=== PATIENT | male | born 1945 | race Caucasian/White ===

== ENCOUNTER 2017-10-14 22:48 | Inpatient (IN) ==
[2017-10-14] MEDS ORDERED: Vancomycin 1,750 MG in D5% in Water 500 ML IVPB ONE (23:00)
[2017-10-14] MEDS ORDERED: *HR* FentaNYL (PF) 100 MCG/2 ML VIAL ONE (23:05)
[2017-10-14] MEDS ORDERED: Naloxone 0.4 MG/ML INJ IVP PRN (23:06)
[2017-10-14] MEDS ORDERED: 0.9 % Sodium Chloride 1,000 ML IVC SCH (23:15)
[2017-10-14] MEDS ORDERED: *HR* Dextrose 50 % in Water (Syg) 50 ML SYRINGE IVP PRN (23:19)
[2017-10-14] MEDS ORDERED: Dextrose Gel 15 GM/37.5 ML TUBE PO PRN ×2 (23:19)
[2017-10-14] MEDS ORDERED: D5% in Water 1,000 ML IVC PRN (23:19)
[2017-10-14] MEDS ORDERED: *HR* FentaNYL (PF) 100 MCG/2 ML VIAL IVP ONE (23:21)
[2017-10-14 23:27] LABS: ABG Base Excess 6 mEq/L (-2 to 3); ABG HCO3 32 mEq/L (21-27); ABG Oxygen Saturation 97 % (95-98); ABG PCO2 53 mmHg (35-45); ABG PH 7.39 pH Units (7.32-7.45); ABG PO2 98 mmHg (85-104); ABG TCO2 34 mEq/L (20-26); Blood Gas Modality VC; Blood Gas PEEP 5 cm H2O; Blood Gas Respiration Rate 18; Blood Gas VT 500 cc
[2017-10-14] MEDS ORDERED: Insulin LISPRO 300 UNITS/3 ML VIAL SQ SCH (23:30)
--- NOTE | 2017-10-14 23:31 | Internal Med History&Physical ---
Date of Encounter: 10/14/17 Time of Encounter: 11:05 Assessment and Plan (1) Acute respiratory failure with hypoxia and hypercapnia Current visit: Yes Status: Acute Secondary to underlying Pneumonia and acute COPD exacerbation will admit to ICU continue vent support wean off sedation as tolerated IV steroids, broad spectrum IV abx, bronchodilator support wean off vent support as tolerated will f/u ABG, CXR, blood cultures, stat labs Spent 30 minutes of critical time in medical decision making in maintaining vital organ function (2) Acute exacerbation of chronic obstructive pulmonary disease (COPD) Current visit: Yes Status: Acute as listed above (3) Pneumonia Current visit: Yes Status: Acute as listed above Qualifiers: Pneumonia type: due to unspecified organism Laterality: unspecified laterality Lung location: unspecified part of lung Qualified Code(s): J18.9 - Pneumonia, unspecified organism (4) Hypertension Current visit: Yes Status: Chronic Noted to be hypertensive will start Hydralazine 10mg IV q6h prn SBP>160 will closely monitor BP Qualifiers: Hypertension type: essential hypertension Qualified Code(s): I10 - Essential (primary) hypertension (5) Hyperglycemia due to type 2 diabetes mellitus Current visit: Yes Status: Chronic Noted to have fingerstick glucose>500 upon arrival awaiting stat labs started IV fluids high dose insulin sliding scale home dose of levemir accuchecks q4h will f/u labs and treat hyperglycemia accordingly Qualifiers: Diabetes mellitus residential insulin use: with termite exterminator use Qualified Code( s): E11.65 - Type 2 diabetes mellitus with hyperglycemia; Z79.4 - rodent exterminator ( current) use of insulin; Z79.4 - nursing home (current) use of insulin; Z79.4 - rodent exterminator (current) use of insulin; Z79.4 - rodent exterminator (current) use of insulin (6) DVT prophylaxis Current visit: Yes Status: Acute Heparin SQ Internal Medicine - H&P: HPI Chief complaint: Transferred from [facility] for acute respiratory failure s/p intubation Admitted From: Intrahospital Transfer Plans for Post Hospital Care: Transfer [facility] History of present illness: Mr. Estrada is a 71 year old male with PMH Of COPD on LTOT, HTN, DM, HLD, carotid stenosis-s/p CEA, CVA with no residual deficits, PVD who was transferred from [facility] for management of acute respiratory failure s/p intubation. Patient was seen in the [facility] ER for acute respiratory distress with hypercapnia and hypoxia earlier this morning, and was admitted for treatment of PNA and COPD exacerbation. Pt further deteriorated, desaturating to 50% on bipap support, requiring intubation. Pt was then transferred to the [facility] for further management. All history is obtained from the physician at [facility] and medical records. Patient was seen and examined in the ICU. Pt mechanically intubated and sedated. Pt required high doses of sedation prior to transfer due to agitation. Pt was given broad spectrum IV abx prior to transfer (Vancomycin, Zosyn) Noted to have fingerstick BG>500 upon arrival Stat labs, ABG pending Repeat CXR, KUB after OG tube placement Internal Medicine - H&P: Meds 3 Allergy/AdvReac Type Severity Reaction Status Date / Time morphine Allergy unknown Verified 10/14/17 23:21 sulfamethoxazole Allergy unknown Verified 10/14/17 23:21 [From Bactrim] trimethoprim [From Bactrim] Allergy unknown Verified 10/14/17 23:21 All Systems PM: A 10-system review of systems was performed and is negative for pertinent findings except as documented above in the HPI. - Constitutional Constitutional: as per HPI - Constitutional Vitals: Resp BP Pulse Ox 18 192/69 99 10/14/17 22:46 10/14/17 22:46 10/14/17 22:46 General appearance: Present: A&O X 0 (sedated and mechanically ventilated ), obese - Head Head exam: Present: atraumatic, normocephalic - Eye Eye exam: Present: conjuntiva pink, sclera anicteric - Respiratory Respiratory exam: Present: decreased breath sounds. Absent: accessory muscle use, respiratory distress, wheezes - Cardiovascular Cardiovascular exam: Present: RRR, +S1, +S2 - GI/Abdominal GI/Abdominal exam: Present: normal bowel sounds, soft, no peritoneal signs. Absent: distended, tenderness - Extremities Exam Extremities exam: Present: warm, radial pulses palpable and symmetrical. Absent : calf tenderness, pedal edema
[2017-10-14] MEDS: FentaNYL (PF) 1,000 MCG in 0.9 % Sodium Chloride 80 ML IVC SCH (23:32)
[2017-10-14 23:42] LABS: Basophils % 0.2 %; Eosinophils % 0.7 %; Hematocrit 34.7 % (37.5-50.1); Hemoglobin 11.7 g/dL (12.9-16.9); Immature Granulocytes % 0.7 % (0-4); Lymphocytes # 0.3 K/mcL (0.6-4.6); Lymphocytes % 4.7 %; Mean Corpuscular HGB Conc 33.7 g/dL (31.6-35.5); Mean Corpuscular Hemoglobin 30.2 pg (28.0-33.3); Mean Corpuscular Volume 89.4 fL (83.0-100.0); Mean Platelet Volume 10.2 fL (9.4-12.4); Monocytes % 0.7 %; Platelet Count 148 K/mcL (140-400); Red Blood Count 3.88 M/mcL (4.19-5.50); Red Cell Distribution Width 14.3 % (11.5-14.5)
[2017-10-14] MEDS ORDERED: Insulin DETEMIR 100 UNIT/ML X5UNITS SQ SCH (23:45)
[2017-10-14] MEDS: Ipratropium/Albuterol Neb 3 ML IH SCH (23:46)
[2017-10-15 00:07] LABS: Calcium 10.1 mg/dL (8.6-10.3); Magnesium 1.5 mg/dL (1.6-2.6); Phosphorous 3.5 mg/dL (2.7-4.5); Potassium 5.5 mEq/L (3.5-5.1)
[2017-10-15 00:10] LABS: Beta-Hydroxybutyric Acid 0.46 mmol/L (0.02-0.27)
[2017-10-15] MEDS: MethylPREDNISolone 40 MG/ML VIAL IVP SCH ×4 (00:51→23:56)
[2017-10-15] MEDS ORDERED: 0.9 % Sodium Chloride 1,000 ML IVC SCH (00:56)
[2017-10-15] MEDS ORDERED: Vancomycin 750 MG in D5% in Water 250 ML IVPB ONE (01:00)
[2017-10-15 01:05] LABS: Hemoglobin A1C 9.7 %
[2017-10-15] MEDS ORDERED: Insulin Human Regular 100 UNIT in 0.9 % Sodium Chloride 100 ML IVC SCH (01:15)
[2017-10-15] MEDS: Insulin Human Regular 100 UNIT in 0.9 % Sodium Chloride 100 ML IVC SCH ×2 (01:36→05:49)
[2017-10-15] MEDS: Ipratropium/Albuterol Neb 3 ML IH SCH ×6 (03:38→23:49)
[2017-10-15] MEDS: Piperacillin/Tazobactam 3.375 GM/200 ML BAG IVPB SCH ×3 (04:15→20:01)
[2017-10-15 04:18] LABS: Basophils % 0.1 %; Eosinophils % 0.1 %; Hematocrit 32.4 % (37.5-50.1); Hemoglobin 10.9 g/dL (12.9-16.9); Immature Granulocytes % 0.3 % (0-4); Lymphocytes # 0.4 K/mcL (0.6-4.6); Lymphocytes % 4.9 %; Mean Corpuscular HGB Conc 33.6 g/dL (31.6-35.5); Mean Corpuscular Hemoglobin 29.8 pg (28.0-33.3); Mean Corpuscular Volume 88.5 fL (83.0-100.0); Mean Platelet Volume 10.5 fL (9.4-12.4); Monocytes # 0.1 K/mcL (0.0-1.3); Neutrophils # 6.7 K/mcL (1.6-8.9); Platelet Count 160 K/mcL (140-400); Red Blood Count 3.66 M/mcL (4.19-5.50); Red Cell Distribution Width 14.1 % (11.5-14.5); Segmented Neutrophils % 93.6 %
[2017-10-15 04:33] LABS: Calcium 10.2 mg/dL (8.6-10.3); Magnesium 1.4 mg/dL (1.6-2.6); Phosphorous 2.1 mg/dL (2.7-4.5); Potassium 4.1 mEq/L (3.5-5.1)
[2017-10-15] MEDS ORDERED: Magnesium Sulfate 2 GM in D5% in Water 100 ML IVPB ONE (05:30)
[2017-10-15] MEDS: Pantoprazole 40 MG VIAL IVPB SCH (05:44)
[2017-10-15] MEDS: *HR* Heparin 5,000 UNIT/ML VIAL SQ SCH ×3 (05:44→20:03)
[2017-10-15] MEDS ORDERED: Vancomycin 1,000 MG in D5% in Water 250 ML IVPB SCH (06:00)
[2017-10-15] MEDS ORDERED: 0.9 % Sodium Chloride 1,000 ML IVC ONE ×2 (07:06→07:21)
[2017-10-15] MEDS ORDERED: Lacri-Lube 3.5 GM TUBE BOTH EYES PRN (07:09)
[2017-10-15] MEDS ORDERED: Aminoglycoside Consult 1 EACH MC ONE (08:02)
[2017-10-15] MEDS: Chlorhexidine Rinse 15 ML MOUTHWASH MM SCH ×2 (08:09→20:00)
[2017-10-15] MEDS: Lacri-Lube 3.5 GM TUBE BOTH EYES SCH ×4 (08:36→20:00)
[2017-10-15] MEDS ORDERED: Oseltamivir 6 MG/ML UDC PO SCH (09:00)
[2017-10-15 09:26] LABS: Prothrombin Time 11.2 Seconds (9.4-12.1)
[2017-10-15] MEDS ORDERED: Dextrose Gel 15 GM/37.5 ML TUBE PO PRN ×4 (09:34→11:55)
[2017-10-15] MEDS ORDERED: D5% in Water 1,000 ML IVC PRN ×2 (09:34→11:55)
[2017-10-15] MEDS ORDERED: *HR* Dextrose 50 % in Water (Syg) 50 ML SYRINGE IVP PRN ×2 (09:34→11:55)
--- NOTE | 2017-10-15 09:36 | Pulmonology Consult Note ---
<Sukumar Iyer - Last Filed: 10/15/17 11:16> Date of Encounter: 10/15/17 Time of Encounter: 09:28 Assessment and Plan (1) Acute respiratory failure with hypoxia and hypercapnia Current Visit: Yes Status: Acute 71-year-old male with known history of COPD was transferred from the [place] undergoing treatment for pneumonia and worsening respiratory status. He required intubation sedation upon admission and transfer to the ICU. - Currently stable intubated, bibasilar infiltrates concerning for pneumonia superimposed COPD exacerbation. Plan: continue vent support wean off sedation as tolerated IV steroids, broad spectrum IV abx, bronchodilator support wean off vent support as tolerated - Continue Levaquin, vancomycin and Zosyn. (2) Acute exacerbation of chronic obstructive pulmonary disease (COPD) Current Visit: Yes Status: Acute Patient presented with hypoxia, hypercarbia, altered mental status requiring intubation. - Continue plan as above. (3) Pneumonia Current Visit: Yes Status: Acute Bibasilar infiltrates concerning for pneumonia given current clinical status we will continue broad-spectrum antibiotics as discussed above. Qualifiers: Pneumonia type: due to unspecified organism Laterality: unspecified laterality Lung location: unspecified part of lung Qualified Code(s): J18.9 - Pneumonia, unspecified organism (4) Hypertension Current Visit: Yes Status: Chronic Patient has no history of hypertension with multiple medications. Blood pressure elevated Plan: Clonidine 0.11 dose - Hydralazine every 6 hours when necessary for systolic blood pressure greater than 160. Qualifiers: Hypertension type: essential hypertension Qualified Code(s): I10 - Essential (primary) hypertension (5) Hyperglycemia due to type 2 diabetes mellitus Current Visit: Yes Status: Chronic Patient presented with hyperglycemia with a glucose of 589, current glucose 190. Anion gap 10 - Likely secondary to pneumonia - Likely elevated in the setting of acute illness, pneumonia. Does have a baseline elevated hemoglobin A1c at 9.7, likely not well controlled. Plan: - Hold home medications as patient is intubated and nothing by mouth - Discontinue insulin drip - Every 6 hours glucose checks - High-dose sliding scale insulin - Levemir 20 units at bedtime Qualifiers: Diabetes mellitus fpc insulin use: with ferry terminal supervisor use Qualified Code( s): E11.65 - Type 2 diabetes mellitus with hyperglycemia; Z79.4 - termite treater helper ( current) use of insulin; Z79.4 - jail (current) use of insulin; Z79.4 - jail (current) use of insulin; Z79.4 - jail (current) use of insulin (6) DVT prophylaxis Current Visit: Yes Status: Acute Subcutaneous heparin History of Present Illness Consult date: 10/15/17 Requesting physician: Tracy Soto Reason for consult: dyspnea, COPD, hypoxemia History of present illness: Mr. Estrada is a 71 year old male with PMH Of COPD on LTOT, HTN, DM, HLD, carotid stenosis-s/p CEA, CVA with no residual deficits, PVD who was transferred from [facility] for management of acute respiratory failure s/p intubation. Since admission he is tolerating mechanical ventilation maintaining blood pressure and vitals. Plan to continue treatment for COPD exacerbation, bibasilar pneumonia with broad-spectrum antibiotics. Past Med Surg Social Fam HX - Past Medical History Medical history: COPD, CVA, hypertension, peripheral artery disease, renal disease, venous stasis - Past Surgical History Surgical History: vascular surgery - Social History Smoking Status: Former smoker Alcohol use: heavy Drug use: none Medications and Allergies Ipratropium/Albuterol Neb [Duoneb] 3 ml IH Q3H PRN 10/14/17 [History] Albuterol Sulfate [Albuterol Inhaler] 4 puff IH Q4H PRN 10/15/17 [History] Ammonium Lactate [Amlactin] 1 each TP BID PRN 10/15/17 [History] Aspirin Enteric Coated [Aspirin EC] 81 mg PO DAILY 10/15/17 [History] Atorvastatin Calcium [Lipitor] 20 mg PO DAILY 10/15/17 [History] Azithromycin [Zithromax Tri-Dez] 500 mg PO DAILY 10/15/17 [History] Chlorhexidine Gluconate [Hand Wash] 15 ml TP BID 10/15/17 [History] Cholecalciferol (Vitamin D3) [Vitamin D] 1,000 unit PO DAILY 10/15/17 [History] Clopidogrel Bisulfate [Plavix] 75 mg PO DAILY 10/15/17 [History] Enoxaparin [Lovenox] 40 mg SQ DAILY 10/15/17 [History] Furosemide [Lasix] 40 mg PO DAILY 10/15/17 [History] Insulin ASPART [NovoLOG] 0 unit SQ TIDAC 10/15/17 [History] Insulin ASPART [NovoLOG] 13 unit SQ TIDWM 10/15/17 [History] Insulin Glargine,Hum.rec.anlog [Lantus Solostar] 10 unit SQ HS 10/15/17 [History ] Leuprolide Acetate [Eligard] 45 mg SQ [id number] 10/15/17 [History] Levofloxacin [Levaquin] 750 mg PO DAILY 10/15/17 [History] Lisinopril-HCTZ 20-12.5 [Prinzide 20-12.5] 1 each PO BID 10/15/17 [History] Metformin HCl [Glucophage] 1,000 mg PO BID 10/15/17 [History] Metoprolol Tartrate [Lopressor] 25 mg PO BID 10/15/17 [History] Multivitamin/Iron/Folic Acid [Centrum Complete Multivit Tab] 1 each PO DAILY 09/20 [History] Naproxen Sodium [All Day Pain Relief] 220 mg PO BID 10/15/17 [History] [place]-3/Dha/Epa/Fish Oil [Fish Oil 1,000 mg Softgel] 1 each PO DAILY 10/15/17 [ History] Potassium Chloride [Klor-Con Sprinkle] 20 meq PO DAILY 10/15/17 [History] Tiotropium Br/Olodaterol HCl [Stiolto Respimat Inhal [place]] 2.25 mcg IH DAILY [History] Tizanidine HCl [Zanaflex] 4 mg PO BID PRN 10/15/17 [History] cloNIDine HCl [Clonidine HCl] 0.2 mg PO BID 10/15/17 [History] 3 Allergy/AdvReac Type Severity Reaction Status Date / Time morphine Allergy unknown Verified 10/14/17 23:21 sulfamethoxazole Allergy unknown Verified 10/14/17 23:21 [From Bactrim] trimethoprim [From Bactrim] Allergy unknown Verified 10/14/17 23:21 ROS unobtainable: due to endotracheal tube, due to mental status All Systems: A 10-system review of systems was performed and is negative for pertinent findings except as documented above in the HPI. Physical Examination Vital Signs: Vital Signs, Last 4 Hours Temp Pulse Resp BP Pulse Ox 10/15/17 08:00 70 10/15/17 07:50 18 91/39 94 10/15/17 07:21 97.6 F 10/15/17 06:00 61 18 90/40 95 General appearance: no acute distress, other (Intubated and sedated) Eyes: nonicteric ENT: oropharynx moist Neck: supple Effort: normal Auscultation: bilateral: clear Cardiovascular: regular rate and rhythm Gastrointestinal: normoactive bowel sounds Integumentary: normal Extremities: no cyanosis, no clubbing, edema (Trace edema bilateral lower extremities, skin graft to left lower extremity.) unable to assess due to mental status Ventilator Settings Ventilator Settings: Ventilator Settings, Last 8 Hours Ventilator Mode VC+ Ventilator Mode VC+ Ventilator Mode VC+ Ventilator Mode VC+ Ventilator Mode VC+ Ventilator Mode VC+ Ventilator Mode VC+ Ventilator Mode VC+ Ventilator Mode VC+ Ventilator Mode A/C Ventilator Mode A/C Ventilator Tidal Volume 500 Setting Ventilator Tidal Volume 500 Setting Ventilator Tidal Volume 500 Setting Ventilator Tidal Volume 500 Setting Ventilator Tidal Volume 500 Setting Ventilator Tidal Volume 500 Setting Ventilator Tidal Volume 500 Setting Ventilator Tidal Volume 500 Setting Ventilator Tidal Volume 500 Setting Ventilator Tidal Volume 500 Setting Ventilator Tidal Volume 500 Setting Ventilator Respiratory Rate 18 Setting Ventilator Respiratory Rate 18 Setting Ventilator Respiratory Rate 18 Setting Ventilator Respiratory Rate 18 Setting Ventilator Respiratory Rate 18 Setting Ventilator Respiratory Rate 18 Setting Ventilator Respiratory Rate 18 Setting Ventilator Respiratory Rate 18 Setting Ventilator Respiratory Rate 18 Setting Ventilator Respiratory Rate 18 Setting Ventilator Respiratory Rate 18 Setting Actual Respiratory Rate 18 Actual Respiratory Rate 18 Actual Respiratory Rate 18 Actual Respiratory Rate 18 Actual Respiratory Rate 18 Actual Respiratory Rate 18 Actual Respiratory Rate 18 Actual Respiratory Rate 18 Actual Respiratory Rate 18 Actual Respiratory Rate 18 Actual Respiratory Rate 18 Positive End Expiratory 5 Pressure Positive End Expiratory 5 Pressure Positive End Expiratory 5 Pressure Positive End Expiratory 5 Pressure Positive End Expiratory 5 Pressure Positive End Expiratory 5 Pressure Positive End Expiratory 5 Pressure Positive End Expiratory 5 Pressure Positive End Expiratory 5 Pressure Positive End Expiratory 5 Pressure Positive End Expiratory 5 Pressure Peak Inspiratory Airway 30 Pressure Peak Inspiratory Airway 30 Pressure Peak Inspiratory Airway 30 Pressure Peak Inspiratory Airway 30 Pressure Peak Inspiratory Airway 30 Pressure Peak Inspiratory Airway 30 Pressure Peak Inspiratory Airway 30 Pressure Peak Inspiratory Airway 29 Pressure Peak Inspiratory Airway 29 Pressure Peak Inspiratory Airway 27 Pressure Peak Inspiratory Airway 28 Pressure Results - Laboratory Findings CBC and BMP: 10/15/17 04:01 10/15/17 04:01 ABG ABG pH 7.39 pH Units (7.32-7.45) 10/14/17 23:24 ABG pCO2 53 mmHg (35-45) H 10/14/17 23:24 ABG pO2 98 mmHg (85-104) 10/14/17 23:24 ABG O2 Saturation 97 % (95-98) 10/14/17 23:24 PT/INR, D-dimer PT 11.2 Seconds (9.4-12.1) 10/15/17 09:10 Abnormal lab findings: Abnormal lab results RBC 3.66 M/mcL (4.19-5.50) L 10/15/17 04:01 Hgb 10.9 g/dL (12.9-16.9) L 10/15/17 04:01 Hct 32.4 % (37.5-50.1) L 10/15/17 04:01 Lymphocytes # 0.4 K/mcL (0.6-4.6) L 10/15/17 04:01 ABG pCO2 53 mmHg (35-45) H 10/14/17 23:24 ABG HCO3 32 mEq/L (21-27) H 10/14/17 23:24 ABG Total CO2 34 mEq/L (20-26) H 10/14/17 23:24 ABG Base Excess 6 mEq/L (-2 to 3) H 10/14/17 23:24 Sodium 135 mEq/L (136-145) L 10/15/17 04:01 Chloride 95 mEq/L (98-107) L 10/15/17 04:01 Carbon Dioxide 30 mEq/L (23-29) H 10/15/17 04:01 BUN 43 mg/dL (8-23) H 10/15/17 04:01 Creatinine 1.74 mg/dL (0.70-1.30) H 10/15/17 04:01 Est GFR ( Amer) 47 (> 60) L 10/15/17 04:01 Est GFR (Non-Af Amer) 39 (> 60) L 10/15/17 04:01 Glucose 475 mg/dL (70-105) H 10/15/17 04:01 POC Glucose 190 (58-89) H 10/15/17 08:13 Hemoglobin A1c 9.7 % (-5.6) H 10/14/17 23:33 Calculated Osmolality 312 (280-300) H 10/15/17 04:01 Lactic Acid 2.4 mmol/L (0.5-2.2) H 10/14/17 23:33 Phosphorus 2.1 mg/dL (2.7-4.5) L 10/15/17 04:01 Magnesium 1.4 mg/dL (1.6-2.6) L 10/15/17 04:01 Beta-Hydroxybutyric Acd 0.46 mmol/L (0.02-0.27) H 10/14/17 23:33 - Clinical Findings Intake & Output: Intake & Output 10/14/17 10/15/17 10/15/17 23:59 07:59 15:59 Intake Total 401 / 401 2220 / 2220 Output Total 300 / 300 300 / 300 Balance -300 / -300 101 / 101 2220 / 2220 Weight 110.1 kg Consult Discharge Plan - Plan Referrals: [facility]Primary Care Provider[facility] - <Salome Espitia - Last Filed: 10/15/17 21:45> Date of Encounter: 10/15/17 All Systems: A 10-system review of systems was performed and is negative for pertinent findings except as documented above in the HPI. Physical Examination Vital Signs: Vital Signs, Last 4 Hours Temp Pulse Resp BP Pulse Ox 10/15/17 15:35 98.4 F 10/15/17 15:00 76 18 124/47 95 10/15/17 14:00 74 18 142/55 92 10/15/17 13:57 18 139/56 92 10/15/17 13:00 80 18 144/58 92 10/15/17 12:00 85 18 178/66 99 10/15/17 11:51 18 178/66 93 Ventilator Settings Ventilator Settings: Ventilator Settings, Last 8 Hours Ventilator Mode VC+ Ventilator Mode VC+ Ventilator Mode VC+ Ventilator Mode VC+ Ventilator Mode VC+ Ventilator Mode VC+ Ventilator Mode VC+ Ventilator Mode VC+ Ventilator Mode VC+ Ventilator Mode VC+ Ventilator Mode VC+ Ventilator Mode VC+ Ventilator Tidal Volume 500 Setting Ventilator Tidal Volume 500 Setting Ventilator Tidal Volume 500 Setting Ventilator Tidal Volume 500 Setting Ventilator Tidal Volume 500 Setting Ventilator Tidal Volume 500 Setting Ventilator Tidal Volume 500 Setting Ventilator Tidal Volume 500 Setting Ventilator Tidal Volume 500 Setting Ventilator Tidal Volume 500 Setting Ventilator Tidal Volume 500 Setting Ventilator Tidal Volume 500 Setting Ventilator Respiratory Rate 18 Setting Ventilator Respiratory Rate 18 Setting Ventilator Respiratory Rate 18 Setting Ventilator Respiratory Rate 18 Setting Ventilator Respiratory Rate 18 Setting Ventilator Respiratory Rate 18 Setting Ventilator Respiratory Rate 18 Setting Ventilator Respiratory Rate 18 Setting Ventilator Respiratory Rate 18 Setting Ventilator Respiratory Rate 18 Setting Ventilator Respiratory Rate 18 Setting Ventilator Respiratory Rate 18 Setting Actual Respiratory Rate 18 Actual Respiratory Rate 18 Actual Respiratory Rate 18 Actual Respiratory Rate 18 Actual Respiratory Rate 18 Actual Respiratory Rate 18 Actual Respiratory Rate 18 Actual Respiratory Rate 18 Actual Respiratory Rate 18 Actual Respiratory Rate 18 Actual Respiratory Rate 18 Actual Respiratory Rate 18 Positive End Expiratory 8 Pressure Positive End Expiratory 8 Pressure Positive End Expiratory 8 Pressure Positive End Expiratory 8 Pressure Positive End Expiratory 8 Pressure Positive End Expiratory 8 Pressure Positive End Expiratory 8 Pressure Positive End Expiratory 8 Pressure Positive End Expiratory 8 Pressure Positive End Expiratory 5 Pressure Positive End Expiratory 5 Pressure Positive End Expiratory 5 Pressure Peak Inspiratory Airway 32 Pressure Peak Inspiratory Airway 33 Pressure Peak Inspiratory Airway 28 Pressure Peak Inspiratory Airway 28 Pressure Peak Inspiratory Airway 28 Pressure Peak Inspiratory Airway 29 Pressure Peak Inspiratory Airway 32 Pressure Peak Inspiratory Airway 30 Pressure Peak Inspiratory Airway 35 Pressure Peak Inspiratory Airway 30 Pressure Peak Inspiratory Airway 30 Pressure Peak Inspiratory Airway 30 Pressure Results - Laboratory Findings CBC and BMP: 10/15/17 04:01 10/15/17 04:01 ABG ABG pH 7.39 pH Units (7.32-7.45) 10/14/17 23:24 ABG pCO2 53 mmHg (35-45) H 10/14/17 23:24 ABG pO2 98 mmHg (85-104) 10/14/17 23:24 ABG O2 Saturation 97 % (95-98) 10/14/17 23:24 PT/INR, D-dimer PT 11.2 Seconds (9.4-12.1) 10/15/17 09:10 Abnormal lab findings: Abnormal lab results RBC 3.66 M/mcL (4.19-5.50) L 10/15/17 04:01 Hgb 10.9 g/dL (12.9-16.9) L 10/15/17 04:01 Hct 32.4 % (37.5-50.1) L 10/15/17 04:01 Lymphocytes # 0.4 K/mcL (0.6-4.6) L 10/15/17 04:01 ABG pCO2 53 mmHg (35-45) H 10/14/17 23:24 ABG HCO3 32 mEq/L (21-27) H 10/14/17 23:24 ABG Total CO2 34 mEq/L (20-26) H 10/14/17 23:24 ABG Base Excess 6 mEq/L (-2 to 3) H 10/14/17 23:24 Sodium 135 mEq/L (136-145) L 10/15/17 04:01 Chloride 95 mEq/L (98-107) L 10/15/17 04:01 Carbon Dioxide 30 mEq/L (23-29) H 10/15/17 04:01 BUN 43 mg/dL (8-23) H 10/15/17 04:01 Creatinine 1.74 mg/dL (0.70-1.30) H 10/15/17 04:01 Est GFR ( Amer) 47 (> 60) L 10/15/17 04:01 Est GFR (Non-Af Amer) 39 (> 60) L 10/15/17 04:01 Glucose 475 mg/dL (70-105) H 10/15/17 04:01 POC Glucose 315 (58-89) H 10/15/17 15:17 Hemoglobin A1c 9.7 % (-5.6) H 10/14/17 23:33 Calculated Osmolality 312 (280-300) H 10/15/17 04:01 Beta-Hydroxybutyric Acd 0.46 mmol/L (0.02-0.27) H 10/14/17 23:33 - Clinical Findings Intake & Output: Intake & Output 10/14/17 10/15/17 10/15/17 23:59 07:59 15:59 Intake Total 401 / 401 3780 / 3780 Output Total 300 / 300 300 / 300 750 / 750 Balance -300 / -300 101 / 101 3030 / 3030 Weight 110.1 kg - Attending Attestation I saw the patient with the resident agree with History and Physical exam findings. Labs and Radiology were reviewed Ventilator data were reviewed Low tidal volume strategy CLIENT SUPPORT CONSULTANT: Patient is intubated and sedated ,patient had some myoclonic jerk EEG showed no seizure activity mostly it is slow wave activity likely due to encephalopathy NECK : No JVD appreciated Pulmonary : Patient is hypoxic and hypercarbic on ventilator , COPD exacerbation with pneumonia will treat as exacerbation with broad spectrum antibiotics will attempt SBT tomorrow . Cardiac : Borderline blood pressure responded to 2 litres of fluids will closely monitor Nutrition/GI: Patient is on tube feeds, PPI prophylaxis Renal : Labs reviewed Heme onc : No acute issues Endo: Diabetes on insulin high sliding scale with long acting if not controlled to use ICU protocol for insulin drip Musculo skeletal / skin issues : No acute skin issues Disposition : Critically ill Code status: Full Code Family/POA: Not met the family yet Spent 45 minutes of Critical care time in medical decision in prevention of vital organ decline .
[2017-10-15] MEDS ORDERED: Albuterol 2.5 MG/3 ML NEBULIZER IH PRN (09:38)
[2017-10-15 10:39] LABS: Adenovirus Not Detected (Not Detect); Coronavirus 229E Not Detected (Not Detect); Coronavirus HKU1 Not Detected (Not Detect); Coronavirus NL63 Not Detected (Not Detect); Coronavirus OC43 Not Detected (Not Detect); Human Metapneumovirus Not Detected (Not Detect); Human Rhinovirus/Enterovirus Not Detected (Not Detect); Influenza A Subtype 2009 H1 Not Detected (Not Detect); Influenza A Untypeable Not Detected (Not Detect); Influenza B Not Detected (Not Detect); Parainfluenza Virus 1 Not Detected (Not Detect); Parainfluenza Virus 2 Not Detected (Not Detect); Parainfluenza Virus 3 Not Detected (Not Detect); Parainfluenza Virus 4 Not Detected (Not Detect); Respiratory Syncytial Virus Not Detected (Not Detect)
[2017-10-15 10:40] LABS: Bordetella Pertussis Not Detected (Not Detect); Chlamydophila pneumoniae Not Detected (Not Detect); Mycoplasma pneumoniae Not Detected (Not Detect)
[2017-10-15] MEDS: Levofloxacin 750 MG/150 ML 750 MG/150 ML BAG IVPB SCH (11:37)
[2017-10-15] MEDS ORDERED: cloNIDine HCl 0.1 MG TABLET PO ONE (11:53)
[2017-10-15] MEDS ORDERED: Insulin LISPRO 300 UNITS/3 ML VIAL SQ SCH ×2 (12:00)
[2017-10-15] MEDS ORDERED: cloNIDine HCl 0.1 MG TABLET ONE (12:10)
--- NOTE | 2017-10-15 13:19 | EEG/EMG/Oth Biometrics Report ---
EEG Procedure Report Date of procedure: 10/15/17 EEG Procedure: Routine EEG Procedure Note: Report: This EEG was acquired with standard international 10-20 electrode placement system with EKG recording. The background activity during this EEG was replaced by a mixture of theta and alpha activity with best frequency up to 7-8 Hz. The background activity was reactive to eye openings. Sleep stages were characterized by the presence of k-complexes and vertex waves. There are no electrographic seizures identified during this tracing. There are no epileptiform discharges and focal slowing noted during this recording. Few shaking activity reported during the study, no EEG correlates identified. Photic stimulation produced no abnormalities. HV not performed during this study. EKG tracing showed no significant cardiac dysarrhythmia. Impression: This is a mild abnormal EEG due to presence of mild diffuse background slowing. Few shaking activity not associated with EEG correlates Clinical Correlation: This EEG is consistent with mild diffuse cerebral dysfunction that can be seen in patients with mild encephalopathy, metabolic/toxic, electrolyte derangement, or patients with history of cognitive impairment. Clinical correlation suggested.
[2017-10-15] MEDS: FentaNYL (PF) 1,000 MCG in 0.9 % Sodium Chloride 80 ML IVC SCH (14:37)
[2017-10-15 15:14] LABS: Magnesium 1.7 mg/dL (1.6-2.6); Phosphorous 3.5 mg/dL (2.7-4.5)
[2017-10-15] MEDS: Insulin LISPRO 300 UNITS/3 ML VIAL SQ SCH ×2 (16:40→20:00)
[2017-10-15] MEDS: Insulin DETEMIR 100 UNIT/ML X5UNITS SQ SCH (20:01)
[2017-10-15] MEDS ORDERED: 0.9 % Sodium Chloride 1,000 ML ONE (21:21)
[2017-10-16] MEDS: Insulin LISPRO 300 UNITS/3 ML VIAL SQ SCH ×6 (00:14→19:59)
[2017-10-16] MEDS: Lacri-Lube 3.5 GM TUBE BOTH EYES SCH ×6 (00:15→19:57)
[2017-10-16] MEDS ORDERED: Vancomycin 1,250 MG in D5% in Water 250 ML IVPB SCH (03:00)
[2017-10-16] MEDS: Piperacillin/Tazobactam 3.375 GM/200 ML BAG IVPB SCH ×3 (03:14→19:55)
[2017-10-16 03:28] LABS: Basophils % 0.1 %; Hematocrit 30.6 % (37.5-50.1); Hemoglobin 10.3 g/dL (12.9-16.9); Immature Granulocytes % 0.2 % (0-4); Immature Platelets 3.6 % (1.1-6.1); Lymphocytes # 0.3 K/mcL (0.6-4.6); Lymphocytes % 3.2 %; Mean Corpuscular HGB Conc 33.7 g/dL (31.6-35.5); Mean Corpuscular Hemoglobin 30.2 pg (28.0-33.3); Mean Corpuscular Volume 89.7 fL (83.0-100.0); Mean Platelet Volume 10.6 fL (9.4-12.4); Monocytes # 0.2 K/mcL (0.0-1.3); Monocytes % 2.2 %; Neutrophils # 9.1 K/mcL (1.6-8.9); Platelet Count 142 K/mcL (140-400); Red Blood Count 3.41 M/mcL (4.19-5.50); Red Cell Distribution Width 14.2 % (11.5-14.5); Segmented Neutrophils % 94.3 %
[2017-10-16 03:40] LABS: Calcium 9.3 mg/dL (8.6-10.3); Magnesium 2.2 mg/dL (1.6-2.6); Phosphorous 3.3 mg/dL (2.7-4.5); Potassium 4.1 mEq/L (3.5-5.1)
[2017-10-16] MEDS: FentaNYL (PF) 1,000 MCG in 0.9 % Sodium Chloride 80 ML IVC SCH ×2 (04:07→23:58)
[2017-10-16] MEDS: Ipratropium/Albuterol Neb 3 ML IH SCH ×5 (04:13→19:48)
[2017-10-16 06:00] LABS: ABG Base Excess 3 mEq/L (-2 to 3); ABG HCO3 29 mEq/L (21-27); ABG Oxygen Saturation 95 % (95-98); ABG PCO2 48 mmHg (35-45); ABG PH 7.38 pH Units (7.32-7.45); ABG PO2 78 mmHg (85-104); ABG TCO2 30 mEq/L (20-26); Blood Gas Modality PRVC; Blood Gas PEEP 8 cm H2O; Blood Gas Respiration Rate 18; Blood Gas VT 500 cc
[2017-10-16] MEDS: *HR* Heparin 5,000 UNIT/ML VIAL SQ SCH ×3 (06:04→19:57)
[2017-10-16] MEDS: Pantoprazole 40 MG VIAL IVPB SCH (06:04)
[2017-10-16] MEDS ORDERED: Dexmedetomidine HCl 400 MCG/100 ML MLS IVC ONE (07:45)
[2017-10-16] MEDS: Chlorhexidine Rinse 15 ML MOUTHWASH MM SCH ×2 (07:55→19:56)
[2017-10-16] MEDS: MethylPREDNISolone 40 MG/ML VIAL IVP SCH ×3 (07:58→23:58)
[2017-10-16] MEDS: Dexmedetomidine HCl 400 MCG/100 ML MLS IVC SCH ×3 (08:01→20:45)
--- NOTE | 2017-10-16 08:22 | Pulmonology Progress Note ---
Date of Encounter: 10/16/17 Time of Encounter: 07:30 Assessment and Plan (1) Acute respiratory failure with hypoxia and hypercapnia Current Visit: Yes Status: Acute Patient is doing well following commands patient passed the SBT the gas exchange post SBT is adequate will plan for extubation to BIPAP today . 32 minutes of critical care time was spent in medical decision making in prevention of vital organ decline . (2) Acute exacerbation of chronic obstructive pulmonary disease (COPD) Current Visit: Yes Status: Acute To continue bronchodilators and steroids (3) Pneumonia Current Visit: Yes Status: Acute Not much sputum production to send for sputum culture to continue broad spectrum antibiotics will descalate antibiotics tomorrow , suspected gram negative pneumonia Qualifiers: Pneumonia type: due to unspecified organism Laterality: unspecified laterality Lung location: unspecified part of lung Qualified Code(s): J18.9 - Pneumonia, unspecified organism (4) Hypertension Current Visit: Yes Status: Chronic Once he is taking PO will start back on clonidine and Lopressor 25 mg BId , for now prn IV hydralazine . Qualifiers: Hypertension type: essential hypertension Qualified Code(s): I10 - Essential (primary) hypertension (5) Hyperglycemia due to type 2 diabetes mellitus Current Visit: Yes Status: Chronic Qualifiers: Diabetes mellitus [facility] insulin use: with associate professor of pathology use Qualified Code( s): E11.65 - Type 2 diabetes mellitus with hyperglycemia; Z79.4 - jail ( current) use of insulin; Z79.4 - lightning protection installer (current) use of insulin; Z79.4 - lightning protection installer (current) use of insulin; Z79.4 - lightning protection installer (current) use of insulin (6) DVT prophylaxis Current Visit: Yes Status: Acute To continue the current regimen . Subjective Principal diagnosis: Exacerbation of COPD Interval history: Patient is doing well on the ventilator on acute on chronic hypoxic and hypercarbic respiratory failure due to COPD exacerbation and pneumonia .Today he is following commands . Objective PUL Vital signs: Last Vital Signs Temp 98.0 F 10/16/17 07:00 Pulse 92 10/16/17 08:00 Resp 26 10/16/17 08:00 BP 164/68 10/16/17 08:00 Pulse Ox 94 10/16/17 08:00 Auscultation: bilateral: wheezes (mild scattered wheezes ) Ventilator Settings Ventilator Settings: Ventilator Settings, Last 8 Hours Ventilator Mode CPAP Ventilator Mode CPAP Ventilator Mode CPAP Ventilator Mode VC+ Ventilator Mode VC+ Ventilator Mode VC+ Ventilator Mode VC+ Ventilator Mode VC+ Ventilator Mode VC+ Ventilator Mode VC+ Ventilator Mode VC+ Ventilator Mode VC+ Ventilator Mode VC+ Ventilator Mode VC+ Ventilator Tidal Volume 500 Setting Ventilator Tidal Volume 500 Setting Ventilator Tidal Volume 500 Setting Ventilator Tidal Volume 500 Setting Ventilator Tidal Volume 500 Setting Ventilator Tidal Volume 500 Setting Ventilator Tidal Volume 500 Setting Ventilator Tidal Volume 500 Setting Ventilator Tidal Volume 500 Setting Ventilator Tidal Volume 500 Setting Ventilator Tidal Volume 500 Setting Ventilator Respiratory Rate 18 Setting Ventilator Respiratory Rate 18 Setting Ventilator Respiratory Rate 18 Setting Ventilator Respiratory Rate 18 Setting Ventilator Respiratory Rate 18 Setting Ventilator Respiratory Rate 18 Setting Ventilator Respiratory Rate 18 Setting Ventilator Respiratory Rate 18 Setting Ventilator Respiratory Rate 18 Setting Ventilator Respiratory Rate 18 Setting Ventilator Respiratory Rate 18 Setting Actual Respiratory Rate 26 Actual Respiratory Rate 27 Actual Respiratory Rate 23 Actual Respiratory Rate 18 Actual Respiratory Rate 18 Actual Respiratory Rate 18 Actual Respiratory Rate 18 Actual Respiratory Rate 18 Actual Respiratory Rate 18 Actual Respiratory Rate 18 Actual Respiratory Rate 18 Actual Respiratory Rate 18 Actual Respiratory Rate 18 Positive End Expiratory 8 Pressure Positive End Expiratory 8 Pressure Positive End Expiratory 8 Pressure Positive End Expiratory 8 Pressure Positive End Expiratory 8 Pressure Positive End Expiratory 8 Pressure Positive End Expiratory 8 Pressure Positive End Expiratory 8 Pressure Positive End Expiratory 8 Pressure Positive End Expiratory 8 Pressure Positive End Expiratory 8 Pressure Positive End Expiratory 8 Pressure Positive End Expiratory 8 Pressure Positive End Expiratory 8 Pressure Peak Inspiratory Airway 17 Pressure Peak Inspiratory Airway 27 Pressure Peak Inspiratory Airway 31 Pressure Peak Inspiratory Airway 31 Pressure Peak Inspiratory Airway 29 Pressure Peak Inspiratory Airway 28 Pressure Peak Inspiratory Airway 28 Pressure Peak Inspiratory Airway 30 Pressure Peak Inspiratory Airway 30 Pressure Peak Inspiratory Airway 30 Pressure Peak Inspiratory Airway 30 Pressure Results - Laboratory Findings CBC and BMP: 10/16/17 03:17 10/16/17 03:17 ABG ABG pH 7.38 pH Units (7.32-7.45) 10/16/17 05:57 ABG pCO2 48 mmHg (35-45) H 10/16/17 05:57 ABG pO2 78 mmHg (85-104) L 10/16/17 05:57 ABG O2 Saturation 95 % (95-98) 10/16/17 05:57 PT/INR, D-dimer PT 11.2 Seconds (9.4-12.1) 10/15/17 09:10 Abnormal lab findings: Abnormal lab results RBC 3.41 M/mcL (4.19-5.50) L 10/16/17 03:17 Hgb 10.3 g/dL (12.9-16.9) L 10/16/17 03:17 Hct 30.6 % (37.5-50.1) L 10/16/17 03:17 Neutrophils # 9.1 K/mcL (1.6-8.9) H 10/16/17 03:17 Lymphocytes # 0.3 K/mcL (0.6-4.6) L 10/16/17 03:17 ABG pCO2 48 mmHg (35-45) H 10/16/17 05:57 ABG pO2 78 mmHg (85-104) L 10/16/17 05:57 ABG HCO3 29 mEq/L (21-27) H 10/16/17 05:57 ABG Total CO2 30 mEq/L (20-26) H 10/16/17 05:57 BUN 45 mg/dL (8-23) H 10/16/17 03:17 Creatinine 1.69 mg/dL (0.70-1.30) H 10/16/17 03:17 Est GFR ( Amer) 48 (> 60) L 10/16/17 03:17 Est GFR (Non-Af Amer) 40 (> 60) L 10/16/17 03:17 BUN/Creatinine Ratio 27 (6-26) H 10/16/17 03:17 Glucose 319 mg/dL (70-105) H 10/16/17 03:17 POC Glucose 313 (58-89) H 10/16/17 07:25 Hemoglobin A1c 9.7 % (-5.6) H 10/14/17 23:33 Calculated Osmolality 306 (280-300) H 10/16/17 03:17 Beta-Hydroxybutyric Acd 0.46 mmol/L (0.02-0.27) H 10/14/17 23:33 - Microbiology Findings Microbiology Findings: Microbiology, Last 48 Hours 10/14/17 23:50 Blood Culture - Preliminary Peripheral Venipuncture No growth. 10/14/17 23:50 Blood Culture - Preliminary Peripheral Venipuncture No growth. - Clinical Findings Intake & Output: Intake & Output 10/15/17 10/16/17 10/16/17 23:59 07:59 15:59 Intake Total 229 / 229 955.1 / 955.1 Output Total 580 / 580 425 / 425 Balance -351 / -351 530.1 / 530.1 - VTE Documentation of Mechanical Device: Intermittent pneumatic compression device Consult Discharge Plan - Plan [facility]errals: [facility] [Primary Care Provider] -
[2017-10-16 08:51] LABS: ABG Base Excess 6 mEq/L (-2 to 3); ABG HCO3 32 mEq/L (21-27); ABG Oxygen Saturation 94 % (95-98); ABG PCO2 47 mmHg (35-45); ABG PH 7.44 pH Units (7.32-7.45); ABG PO2 69 mmHg (85-104); ABG TCO2 33 mEq/L (20-26); Blood Gas Modality CPAP/PS; Blood Gas PEEP 8 cm H2O
[2017-10-16] MEDS: Insulin DETEMIR 100 UNIT/ML X5UNITS SQ SCH (19:56)
[2017-10-16] MEDS ORDERED: *HR* Dextrose 50 % in Water (Syg) 50 ML SYRINGE IVP PRN (22:09)
[2017-10-16] MEDS: Insulin Human Regular 100 UNIT in 0.9 % Sodium Chloride 100 ML IVC SCH (22:40)
[2017-10-17] MEDS: Ipratropium/Albuterol Neb 3 ML IH SCH ×7 (00:05→23:57)
[2017-10-17] MEDS: Insulin LISPRO 300 UNITS/3 ML VIAL SQ SCH ×6 (00:22→20:05)
[2017-10-17] MEDS: Lacri-Lube 3.5 GM TUBE BOTH EYES SCH ×6 (00:23→20:02)
[2017-10-17] MEDS: Piperacillin/Tazobactam 3.375 GM/200 ML BAG IVPB SCH ×3 (03:19→20:01)
[2017-10-17 03:32] LABS: Basophils % 0.2 %; Hematocrit 33.1 % (37.5-50.1); Immature Granulocytes % 0.8 % (0-4); Lymphocytes # 0.3 K/mcL (0.6-4.6); Lymphocytes % 4.6 %; Mean Corpuscular HGB Conc 33.2 g/dL (31.6-35.5); Mean Corpuscular Hemoglobin 29.9 pg (28.0-33.3); Mean Corpuscular Volume 89.9 fL (83.0-100.0); Mean Platelet Volume 10.3 fL (9.4-12.4); Monocytes # 0.2 K/mcL (0.0-1.3); Monocytes % 2.7 %; Neutrophils # 5.8 K/mcL (1.6-8.9); Platelet Count 121 K/mcL (140-400); Red Blood Count 3.68 M/mcL (4.19-5.50); Red Cell Distribution Width 14.3 % (11.5-14.5); Segmented Neutrophils % 91.7 %
[2017-10-17 03:53] LABS: Calcium 9.9 mg/dL (8.6-10.3); Magnesium 2.2 mg/dL (1.6-2.6); Phosphorous 2.7 mg/dL (2.7-4.5); Potassium 3.9 mEq/L (3.5-5.1)
[2017-10-17] MEDS: *HR* Heparin 5,000 UNIT/ML VIAL SQ SCH ×3 (05:55→20:01)
[2017-10-17] MEDS: Pantoprazole 40 MG VIAL IVPB SCH (05:55)
[2017-10-17] MEDS: Chlorhexidine Rinse 15 ML MOUTHWASH MM SCH ×2 (07:45→20:02)
--- NOTE | 2017-10-17 08:24 | Pulmonology Progress Note ---
Date of Encounter: 10/17/17 Time of Encounter: 08:15 Assessment and Plan (1) Acute respiratory failure with hypoxia and hypercapnia Current Visit: Yes Status: Acute Patient is doing well following commands to wean FIO2 to SPO2 around 88-90% (2) Acute exacerbation of chronic obstructive pulmonary disease (COPD) Current Visit: Yes Status: Acute To continue bronchodilators and steroids (3) Pneumonia Current Visit: Yes Status: Acute Not much sputum production to send for sputum culture to stop zosyn and continue on Levofloxacin Qualifiers: Pneumonia type: due to unspecified organism Laterality: unspecified laterality Lung location: unspecified part of lung Qualified Code(s): J18.9 - Pneumonia, unspecified organism (4) Hypertension Current Visit: Yes Status: Chronic Start back on Clonidine and Lopressor Qualifiers: Hypertension type: essential hypertension Qualified Code(s): I10 - Essential (primary) hypertension (5) Hyperglycemia due to type 2 diabetes mellitus Current Visit: Yes Status: Chronic To increased Levemir 40 units SC and high dose insulin slidings scale to stop Iv insulin drip Qualifiers: Diabetes mellitus [facility] insulin use: with exterminator termite use Qualified Code( s): E11.65 - Type 2 diabetes mellitus with hyperglycemia; Z79.4 - long term care administrator ( current) use of insulin; Z79.4 - residential (current) use of insulin; Z79.4 - long term care administrator (current) use of insulin; Z79.4 - residential (current) use of insulin (6) DVT prophylaxis Current Visit: Yes Status: Acute To continue the current regimen . Subjective Principal diagnosis: Exacerbation of COPD Interval history: Patient is did well on BIPAP overnight, denies any complaints .No acute events overnight . Objective PUL Vital signs: Last Vital Signs Temp 97.4 F L 10/17/17 00:00 Pulse 73 10/17/17 08:00 Resp 18 10/17/17 08:00 BP 174/71 10/17/17 08:00 Pulse Ox 93 10/17/17 08:00 Auscultation: bilateral: wheezes Results - Laboratory Findings CBC and BMP: 10/17/17 03:21 10/17/17 03:21 ABG ABG pH 7.44 pH Units (7.32-7.45) 10/16/17 08:33 ABG pCO2 47 mmHg (35-45) H 10/16/17 08:33 ABG pO2 69 mmHg (85-104) L 10/16/17 08:33 ABG O2 Saturation 94 % (95-98) L 10/16/17 08:33 PT/INR, D-dimer PT 11.2 Seconds (9.4-12.1) 10/15/17 09:10 Abnormal lab findings: Abnormal lab results RBC 3.68 M/mcL (4.19-5.50) L 10/17/17 03:21 Hgb 11.0 g/dL (12.9-16.9) L 10/17/17 03:21 Hct 33.1 % (37.5-50.1) L 10/17/17 03:21 Plt Count 121 K/mcL (140-400) L 10/17/17 03:21 Lymphocytes # 0.3 K/mcL (0.6-4.6) L 10/17/17 03:21 ABG pCO2 47 mmHg (35-45) H 10/16/17 08:33 ABG pO2 69 mmHg (85-104) L 10/16/17 08:33 ABG HCO3 32 mEq/L (21-27) H 10/16/17 08:33 ABG Total CO2 33 mEq/L (20-26) H 10/16/17 08:33 ABG O2 Saturation 94 % (95-98) L 10/16/17 08:33 ABG Base Excess 6 mEq/L (-2 to 3) H 10/16/17 08:33 BUN 42 mg/dL (8-23) H 10/17/17 03:21 Creatinine 1.43 mg/dL (0.70-1.30) H 10/17/17 03:21 Est GFR ( Amer) 59 (> 60) L 10/17/17 03:21 Est GFR (Non-Af Amer) 48 (> 60) L 10/17/17 03:21 BUN/Creatinine Ratio 29 (6-26) H 10/17/17 03:21 Glucose 136 mg/dL (70-105) H 10/17/17 03:21 POC Glucose 135 (58-89) H 10/17/17 08:02 Hemoglobin A1c 9.7 % (-5.6) H 10/14/17 23:33 Calculated Osmolality 305 (280-300) H 10/17/17 03:21 Beta-Hydroxybutyric Acd 0.46 mmol/L (0.02-0.27) H 10/14/17 23:33 - Microbiology Findings Microbiology Findings: Microbiology, Last 48 Hours 10/14/17 23:50 Blood Culture - Preliminary Peripheral Venipuncture No growth. 10/14/17 23:50 Blood Culture - Preliminary Peripheral Venipuncture No growth. - Clinical Findings Intake & Output: Intake & Output 10/16/17 10/17/17 10/17/17 23:59 07:59 15:59 Intake Total 300 / 300 75.7 / 75.7 1.8 / 1.8 Output Total 350 / 350 425 / 425 Balance -50 / -50 -349.3 / -349.3 1.8 / 1.8 Weight 114 kg - VTE Documentation of Mechanical Device: Intermittent pneumatic compression device Consult Discharge Plan - Plan [facility]errals: [facility] [Primary Care Provider] -
[2017-10-17] MEDS: Levofloxacin 750 MG/150 ML 750 MG/150 ML BAG IVPB SCH (09:06)
[2017-10-17] MEDS: Furosemide 40 MG/4 ML VIAL IVP SCH (09:06)
[2017-10-17] MEDS: cloNIDine HCl 0.1 MG TABLET PO SCH ×2 (12:05→16:54)
[2017-10-17] MEDS ORDERED: cloNIDine HCl 0.1 MG TABLET PO SCH (15:00)
[2017-10-17] MEDS: MethylPREDNISolone 40 MG/ML VIAL IVP SCH (16:54)
[2017-10-17] MEDS: Insulin DETEMIR 100 UNIT/ML X5UNITS SQ SCH (20:05)
[2017-10-18] MEDS: Insulin LISPRO 300 UNITS/3 ML VIAL SQ SCH ×7 (00:16→23:31)
[2017-10-18] MEDS: Insulin Human Regular 100 UNIT in 0.9 % Sodium Chloride 100 ML IVC SCH (00:18)
[2017-10-18] MEDS: FentaNYL (PF) 1,000 MCG in 0.9 % Sodium Chloride 80 ML IVC SCH (00:19)
[2017-10-18] MEDS: Lacri-Lube 3.5 GM TUBE BOTH EYES SCH ×7 (00:19→23:24)
[2017-10-18] MEDS: Ipratropium/Albuterol Neb 3 ML IH SCH ×6 (04:09→23:42)
[2017-10-18 04:14] LABS: Basophils % 0.1 %; Hematocrit 33.2 % (37.5-50.1); Hemoglobin 10.9 g/dL (12.9-16.9); Immature Granulocytes % 0.7 % (0-4); Lymphocytes # 0.4 K/mcL (0.6-4.6); Lymphocytes % 6.4 %; Mean Corpuscular HGB Conc 32.8 g/dL (31.6-35.5); Mean Corpuscular Hemoglobin 29.8 pg (28.0-33.3); Mean Corpuscular Volume 90.7 fL (83.0-100.0); Mean Platelet Volume 10.6 fL (9.4-12.4); Monocytes # 0.3 K/mcL (0.0-1.3); Monocytes % 4.9 %; Neutrophils # 6.1 K/mcL (1.6-8.9); Platelet Count 153 K/mcL (140-400); Red Blood Count 3.66 M/mcL (4.19-5.50); Red Cell Distribution Width 14.4 % (11.5-14.5); Segmented Neutrophils % 87.9 %
[2017-10-18 04:22] LABS: Calcium 9.7 mg/dL (8.6-10.3); Phosphorous 3.3 mg/dL (2.7-4.5); Potassium 4.2 mEq/L (3.5-5.1)
[2017-10-18] MEDS: MethylPREDNISolone 40 MG/ML VIAL IVP SCH (05:00)
[2017-10-18] MEDS: *HR* Heparin 5,000 UNIT/ML VIAL SQ SCH ×3 (05:00→23:23)
[2017-10-18] MEDS: Pantoprazole 40 MG VIAL IVPB SCH (05:00)
[2017-10-18] MEDS: Chlorhexidine Rinse 15 ML MOUTHWASH MM SCH ×2 (08:00→19:54)
[2017-10-18] MEDS: Furosemide 40 MG/4 ML VIAL IVP SCH (08:00)
--- NOTE | 2017-10-18 10:38 | Pulmonology Progress Note ---
<Deangelo Minaya - Last Filed: 10/18/17 11:00> Date of Encounter: 10/18/17 Time of Encounter: 10:36 Assessment and Plan (1) Acute respiratory failure with hypoxia and hypercapnia Current Visit: Yes Status: Acute Acute respiratory failure with hypoxia and hypercapnia secondary to COPD exacerbation and pneumonia Previous ventilator support and was weaned appropriately Tolerating BiPAP at night Sating well on 2L NC O2 during the day Responding well to IV antibiotics, steroids and bronchodilators Plan to transfer out of the ICU to telemetry Patient still high risk with recent intubation and will continue to monitor closely throughout the day (2) Pneumonia Current Visit: Yes Status: Acute Chest x-ray demonstrates bibasilar consolidation process No leukocytosis Vital signs stable Sating well on 2 L NC O2 Plan: Discontinue Zosyn yesterday Continue IV Levaquin Dounebs Proventil Transition to by mouth steroids Transferred out of the ICU today to telemetry pending placement Qualifiers: Pneumonia type: due to unspecified organism Laterality: unspecified laterality Lung location: unspecified part of lung Qualified Code(s): J18.9 - Pneumonia, unspecified organism (3) Acute exacerbation of chronic obstructive pulmonary disease (COPD) Current Visit: Yes Status: Acute Clinically improving Transitioning to oral steroids Continue Dounebs with Proventil Sating well on home oxygen demand of 2L NC (4) Hypertension Current Visit: Yes Status: Chronic Appears to be stable at this time. No changes Qualifiers: Hypertension type: essential hypertension Qualified Code(s): I10 - Essential (primary) hypertension (5) Hyperglycemia due to type 2 diabetes mellitus Current Visit: Yes Status: Chronic Blood sugars are improving Decrease steroids to 40 by mouth once a day We will continue Levemir 40 units subcutaneous with high-dose sliding scale for coverage Diabetic diet Qualifiers: Diabetes mellitus joint terminal attack controller insulin use: with residential use Qualified Code( s): E11.65 - Type 2 diabetes mellitus with hyperglycemia; Z79.4 - terminal make up operator ( current) use of insulin; Z79.4 - retirement (current) use of insulin; Z79.4 - retirement (current) use of insulin; Z79.4 - terminal make up operator (current) use of insulin (6) DVT prophylaxis Current Visit: Yes Status: Acute Heparin subcutaneous 5000 units every 8 hours Subjective Principal diagnosis: Exacerbation of COPD Interval history: Patient is admitted for acute respiratory failure with hypoxia and hypercapnia secondary to COPD exacerbation and pneumonia Plan to transfer out of unit today Patient is resting comfortably in bed No concerns overnight per nursing - tolerating BiPAP overnight No new complaints today Denies any chest pain, worsening shortness of breath, palpitations, nausea, vomiting, abdominal pain or GI issues. Objective PUL Vital signs: Last Vital Signs Temp 98.0 F 10/18/17 08:00 Pulse 67 10/18/17 08:00 Resp 18 10/18/17 08:00 BP 153/68 10/18/17 08:00 Pulse Ox 90 10/18/17 08:00 General appearance: no acute distress Eyes: nonicteric ENT: oropharynx moist Neck: supple Effort: normal Auscultation: bilateral: wheezes, rhonchi Cardiovascular: regular rate and rhythm Gastrointestinal: normoactive bowel sounds, non-distended Integumentary: normal Extremities: no cyanosis, no edema, no clubbing Musculoskeletal: no deformities, ROM normal normal mental status, non-focal exam mood appropriate, affect normal Results - Laboratory Findings CBC and BMP: 10/18/17 03:44 10/18/17 03:44 ABG ABG pH 7.44 pH Units (7.32-7.45) 10/16/17 08:33 ABG pCO2 47 mmHg (35-45) H 10/16/17 08:33 ABG pO2 69 mmHg (85-104) L 10/16/17 08:33 ABG O2 Saturation 94 % (95-98) L 10/16/17 08:33 PT/INR, D-dimer PT 11.2 Seconds (9.4-12.1) 10/15/17 09:10 Abnormal lab findings: Abnormal lab results RBC 3.66 M/mcL (4.19-5.50) L 10/18/17 03:44 Hgb 10.9 g/dL (12.9-16.9) L 10/18/17 03:44 Hct 33.2 % (37.5-50.1) L 10/18/17 03:44 Lymphocytes # 0.4 K/mcL (0.6-4.6) L 10/18/17 03:44 ABG pCO2 47 mmHg (35-45) H 10/16/17 08:33 ABG pO2 69 mmHg (85-104) L 10/16/17 08:33 ABG HCO3 32 mEq/L (21-27) H 10/16/17 08:33 ABG Total CO2 33 mEq/L (20-26) H 10/16/17 08:33 ABG O2 Saturation 94 % (95-98) L 10/16/17 08:33 ABG Base Excess 6 mEq/L (-2 to 3) H 10/16/17 08:33 BUN 49 mg/dL (8-23) H 10/18/17 03:44 Creatinine 1.65 mg/dL (0.70-1.30) H 10/18/17 03:44 Est GFR ( Amer) 50 (> 60) L 10/18/17 03:44 Est GFR (Non-Af Amer) 41 (> 60) L 10/18/17 03:44 BUN/Creatinine Ratio 30 (6-26) H 10/18/17 03:44 Glucose 174 mg/dL (70-105) H 10/18/17 03:44 POC Glucose 191 (58-89) H 10/18/17 07:44 Hemoglobin A1c 9.7 % (-5.6) H 10/14/17 23:33 Calculated Osmolality 303 (280-300) H 10/18/17 03:44 Beta-Hydroxybutyric Acd 0.46 mmol/L (0.02-0.27) H 10/14/17 23:33 - Microbiology Findings Microbiology Findings: Microbiology, Last 48 Hours 10/14/17 23:50 Blood Culture - Preliminary Peripheral Venipuncture No growth. 10/14/17 23:50 Blood Culture - Preliminary Peripheral Venipuncture No growth. - Diagnostic Findings Chest x-ray: report reviewed - Clinical Findings Intake & Output: Intake & Output 10/17/17 10/18/17 10/18/17 23:59 07:59 15:59 Intake Total 200 / 200 480 / 480 Output Total 425 / 425 579 / 579 750 / 750 Balance -225 / -225 -579 / -579 -270 / -270 Weight 111 kg - VTE Documentation of Mechanical Device: Intermittent pneumatic compression device Consult Discharge Plan - Plan [facility]errals: [facility] [Primary Care Provider[facility] - <Maisha Reno - Last Filed: 10/18/17 12:52> Date of Encounter: 10/18/17 Objective PUL Vital signs: Last Vital Signs Temp 97.8 F 10/18/17 12:08 Pulse 67 10/18/17 08:00 Resp 18 10/18/17 11:17 BP 153/68 10/18/17 08:00 Pulse Ox 90 10/18/17 11:17 Results - Laboratory Findings CBC and BMP: 10/18/17 03:44 10/18/17 03:44 ABG ABG pH 7.44 pH Units (7.32-7.45) 10/16/17 08:33 ABG pCO2 47 mmHg (35-45) H 10/16/17 08:33 ABG pO2 69 mmHg (85-104) L 10/16/17 08:33 ABG O2 Saturation 94 % (95-98) L 10/16/17 08:33 PT/INR, D-dimer PT 11.2 Seconds (9.4-12.1) 10/15/17 09:10 Abnormal lab findings: Abnormal lab results RBC 3.66 M/mcL (4.19-5.50) L 10/18/17 03:44 Hgb 10.9 g/dL (12.9-16.9) L 10/18/17 03:44 Hct 33.2 % (37.5-50.1) L 10/18/17 03:44 Lymphocytes # 0.4 K/mcL (0.6-4.6) L 10/18/17 03:44 ABG pCO2 47 mmHg (35-45) H 10/16/17 08:33 ABG pO2 69 mmHg (85-104) L 10/16/17 08:33 ABG HCO3 32 mEq/L (21-27) H 10/16/17 08:33 ABG Total CO2 33 mEq/L (20-26) H 10/16/17 08:33 ABG O2 Saturation 94 % (95-98) L 10/16/17 08:33 ABG Base Excess 6 mEq/L (-2 to 3) H 10/16/17 08:33 BUN 49 mg/dL (8-23) H 10/18/17 03:44 Creatinine 1.65 mg/dL (0.70-1.30) H 10/18/17 03:44 Est GFR ( Amer) 50 (> 60) L 10/18/17 03:44 Est GFR (Non-Af Amer) 41 (> 60) L 10/18/17 03:44 BUN/Creatinine Ratio 30 (6-26) H 10/18/17 03:44 Glucose 174 mg/dL (70-105) H 10/18/17 03:44 POC Glucose 278 (58-89) H 10/18/17 11:07 Hemoglobin A1c 9.7 % (-5.6) H 10/14/17 23:33 Calculated Osmolality 303 (280-300) H 10/18/17 03:44 Beta-Hydroxybutyric Acd 0.46 mmol/L (0.02-0.27) H 10/14/17 23:33 - Microbiology Findings Microbiology Findings: Microbiology, Last 48 Hours 10/14/17 23:50 Blood Culture - Preliminary Peripheral Venipuncture No growth. 10/14/17 23:50 Blood Culture - Preliminary Peripheral Venipuncture No growth. - Clinical Findings Intake & Output: Intake & Output 10/17/17 10/18/17 10/18/17 23:59 07:59 15:59 Intake Total 200 / 200 480 / 480 Output Total 425 / 425 579 / 579 750 / 750 Balance -225 / -225 -579 / -579 -270 / -270 Weight 111 kg - Attending Attestation I examined this patient and my medical decision-making was reviewed with the Resident Physician. I agree with the documented findings, disposition and treatment plan as described except to the extent set forth below. Patient seen and examined. Labs, radiology, chart personally reviewed. Agree with resident's history and physical, assessment, plan with following comments: PRESS ASSISTANT AND FEEDER: Patient follows commands, Pulmonary: Acceptable oxygenation and ventilation. Patient is feeling much better and continue noninvasive ventilation as needed. Patient will need outpatient follow-up about 4-6 weeks when his discharge from the hospital. Cardiovascular: stable reviewed patient hemodynamically stable to be transferred to the floor. GI: Nutrition per dietary and GI prophylaxis per routine Heme: DVT prophylaxis per routine ID: Continue antibiotics and plan to de-escalation Renal; urine out put and renal funtion reviewed Endorcine: blood glucose is monitored Lines: all lines checked and no evidence of infections Skin: skin care to prevent pressure ulcers per nursing routine care
[2017-10-18] MEDS: predniSONE 20 MG TABLET PO SCH (13:31)
[2017-10-18] MEDS: cloNIDine HCl 0.1 MG TABLET PO SCH ×2 (13:31→16:21)
[2017-10-18] MEDS: Insulin DETEMIR 100 UNIT/ML X5UNITS SQ SCH (19:54)
[2017-10-19] MEDS: Ipratropium/Albuterol Neb 3 ML IH SCH ×3 (04:12→11:14)
[2017-10-19] MEDS: Lacri-Lube 3.5 GM TUBE BOTH EYES SCH ×2 (04:32→07:55)
[2017-10-19] MEDS: Insulin LISPRO 300 UNITS/3 ML VIAL SQ SCH ×2 (04:44→08:03)
[2017-10-19] MEDS: Pantoprazole 40 MG VIAL IVPB SCH (05:01)
[2017-10-19] MEDS: *HR* Heparin 5,000 UNIT/ML VIAL SQ SCH (05:01)
[2017-10-19 05:22] LABS: Basophils % 0.5 %; Eosinophils % 0.2 %; Hematocrit 34.8 % (37.5-50.1); Immature Granulocytes % 3.6 % (0-4); Mean Corpuscular HGB Conc 34.5 g/dL (31.6-35.5); Mean Corpuscular Hemoglobin 30.4 pg (28.0-33.3); Mean Corpuscular Volume 88.1 fL (83.0-100.0); Mean Platelet Volume 10.8 fL (9.4-12.4); Monocytes # 0.8 K/mcL (0.0-1.3); Monocytes % 9.5 %; Nucleated Red Blood Cells 0.2 /100 WBC (0); Platelet Count 194 K/mcL (140-400); Red Blood Count 3.95 M/mcL (4.19-5.50); Red Cell Distribution Width 14.2 % (11.5-14.5); Segmented Neutrophils % 74.2 %
[2017-10-19 05:23] LABS: BUN/Creatinine Ratio 34 (6-26); Blood Urea Nitrogen 46 mg/dL (8-23); Calcium 9.8 mg/dL (8.6-10.3); Carbon Dioxide 30 mEq/L (23-29); Chloride 100 mEq/L (98-107); Glucose 79 mg/dL (70-105); Osmolality,Calculated 301 (280-300); Sodium 140 mEq/L (136-145); eGFR For African Americans > 60 (> 60); eGFR For Non-African Americans 51 (> 60)
[2017-10-19] MEDS: Chlorhexidine Rinse 15 ML MOUTHWASH MM SCH (07:55)
[2017-10-19] MEDS: predniSONE 20 MG TABLET PO SCH (08:03)
[2017-10-19] MEDS: Furosemide 40 MG/4 ML VIAL IVP SCH (08:03)
[2017-10-19 08:59] VITALS: BP 144/73
--- NOTE | 2017-10-19 10:24 | Discharge Summary ---
<Honorio Chapin - Last Filed: 10/19/17 10:58> Date of Encounter: 10/19/17 Time of Encounter: 10:00 - Discharge Diagnosis (1) Acute respiratory failure with hypoxia and hypercapnia Priority: Primary Status: Resolved (2) Acute exacerbation of chronic obstructive pulmonary disease (COPD) Priority: Primary Status: Resolved (3) Pneumonia Priority: Primary Status: Acute Comments: Patient will be discharged on 2 more days of Levaquin and prednisone taper. Qualifiers: Pneumonia type: due to unspecified organism Laterality: unspecified laterality Lung location: unspecified part of lung Qualified Code(s): J18.9 - Pneumonia, unspecified organism (4) Hypertension Priority: Secondary Status: Chronic Qualifiers: Hypertension type: essential hypertension Qualified Code(s): I10 - Essential (primary) hypertension (5) Hyperglycemia due to type 2 diabetes mellitus Priority: Secondary Status: Chronic Qualifiers: Diabetes mellitus intermodal dispatcher insulin use: with intermodal dispatcher use Qualified Code( s): E11.65 - Type 2 diabetes mellitus with hyperglycemia; Z79.4 - bed bug exterminator ( current) use of insulin; Z79.4 - bed bug exterminator (current) use of insulin; Z79.4 - [facility] (current) use of insulin; Z79.4 - bed bug exterminator (current) use of insulin - Discharge Medications Prescriptions: Albuterol Sulfate [Proventil Hfa] 90 mcg IH Q6H #1 hfa.aer.ad Budesonide/Formoterol 160/4.5 [Symbicort 160/4.5] 1 puff IH BID #1 hfa.aer.ad Levofloxacin [Levaquin] 750 mg PO DAILY #2 tablet predniSONE [PredniSONE] See Taper PO DAILY #20 tablet Home Medications: Ipratropium/Albuterol Neb [Duoneb] 3 ml IH Q3H PRN 10/14/17 [History] Albuterol Sulfate [Albuterol Inhaler] 4 puff IH Q4H PRN 10/15/17 [History] Ammonium Lactate [Amlactin] 1 each TP BID PRN 10/15/17 [History] Aspirin Enteric Coated [Aspirin EC] 81 mg PO DAILY 10/15/17 [History] Atorvastatin Calcium [Lipitor] 20 mg PO DAILY 10/15/17 [History] Azithromycin [Zithromax Tri-Dez] 500 mg PO DAILY 10/15/17 [History] Chlorhexidine Gluconate [Hand Wash] 15 ml TP BID 10/15/17 [History] Cholecalciferol (Vitamin D3) [Vitamin D] 1,000 unit PO DAILY 10/15/17 [History] Clopidogrel Bisulfate [Plavix] 75 mg PO DAILY 10/15/17 [History] Enoxaparin [Lovenox] 40 mg SQ DAILY 10/15/17 [History] Furosemide [Lasix] 40 mg PO DAILY 10/15/17 [History] Insulin ASPART [NovoLOG] 0 unit SQ TIDAC 10/15/17 [History] Insulin ASPART [NovoLOG] 13 unit SQ TIDWM 10/15/17 [History] Insulin Glargine,Hum.rec.anlog [Lantus Solostar] 10 unit SQ HS 10/15/17 [History ] Leuprolide Acetate [Eligard] 45 mg SQ [id number] 10/15/17 [History] Levofloxacin [Levaquin] 750 mg PO DAILY 10/15/17 [History] Lisinopril-HCTZ 20-12.5 [Prinzide 20-12.5] 1 each PO BID 10/15/17 [History] Metformin HCl [Glucophage] 1,000 mg PO BID 10/15/17 [History] Metoprolol Tartrate [Lopressor] 25 mg PO BID 10/15/17 [History] Multivitamin/Iron/Folic Acid [Centrum Complete Multivit Tab] 1 each PO DAILY 09/20 [History] Naproxen Sodium [All Day Pain Relief] 220 mg PO BID 10/15/17 [History] [place]-3/Dha/Epa/Fish Oil [Fish Oil 1,000 mg Softgel] 1 each PO DAILY 10/15/17 [ History] Potassium Chloride [Klor-Con Sprinkle] 20 meq PO DAILY 10/15/17 [History] Tiotropium Br/Olodaterol HCl [Stiolto Respimat Inhal [place]] 2.25 mcg IH DAILY [History] Tizanidine HCl [Zanaflex] 4 mg PO BID PRN 10/15/17 [History] cloNIDine HCl [Clonidine HCl] 0.2 mg PO BID 10/15/17 [History] Albuterol Sulfate [Proventil Hfa] 90 mcg IH Q6H #1 hfa.aer.ad 10/19/17 [Rx] Budesonide/Formoterol 160/4.5 [Symbicort 160/4.5] 1 puff IH BID #1 hfa.aer.ad [Rx] Levofloxacin [Levaquin] 750 mg PO DAILY #2 tablet 10/19/17 [Rx] predniSONE [PredniSONE] See Taper PO DAILY #20 tablet 10/19/17 [Rx] Allergies/Adverse Reactions: 3 Allergy/AdvReac Type Severity Reaction Status Date / Time morphine Allergy unknown Verified 10/14/17 23:21 sulfamethoxazole Allergy unknown Verified 10/14/17 23:21 [From Bactrim] trimethoprim [From Bactrim] Allergy unknown Verified 10/14/17 23:21 Labs on day of discharge: Labs from last 24 hours 10/19/17 10/19/17 10/19/17 07:17 04:55 04:55 WBC 8.1 RBC 3.95 L Hgb 12.0 L Hct 34.8 L MCV 88.1 MCH 30.4 MCHC 34.5 RDW 14.2 Plt Count 194 MPV 10.8 Immature Gran % 3.6 Seg Neutrophils % 74.2 Lymphocytes % 12.0 Monocytes % 9.5 Eosinophils % 0.2 Basophils % 0.5 Neutrophils # 6.0 Lymphocytes # 1.0 Monocytes # 0.8 Eosinophils # 0.0 Basophils # 0.0 Nucleated RBCs/100 WBC 0.2 H Sodium 140 Potassium 4.0 Chloride 100 Carbon Dioxide 30 H BUN 46 H Creatinine 1.37 H Est GFR ( Amer) > 60 Est GFR (Non-Af Amer) 51 L BUN/Creatinine Ratio 34 H Glucose 79 POC Glucose 185 H Calculated Osmolality 301 H Calcium 9.8 10/19/17 10/18/17 10/18/17 04:43 23:28 19:37 WBC RBC Hgb Hct MCV MCH MCHC RDW Plt Count MPV Immature Gran % Seg Neutrophils % Lymphocytes % Monocytes % Eosinophils % Basophils % Neutrophils # Lymphocytes # Monocytes # Eosinophils # Basophils # Nucleated RBCs/100 WBC Sodium Potassium Chloride Carbon Dioxide BUN Creatinine Est GFR ( Amer) Est GFR (Non-Af Amer) BUN/Creatinine Ratio Glucose POC Glucose 71 246 H 425 H* Calculated Osmolality Calcium 10/18/17 10/18/17 10/18/17 19:36 15:02 11:07 WBC RBC Hgb Hct MCV MCH MCHC RDW Plt Count MPV Immature Gran % Seg Neutrophils % Lymphocytes % Monocytes % Eosinophils % Basophils % Neutrophils # Lymphocytes # Monocytes # Eosinophils # Basophils # Nucleated RBCs/100 WBC Sodium Potassium Chloride Carbon Dioxide BUN Creatinine Est GFR ( Amer) Est GFR (Non-Af Amer) BUN/Creatinine Ratio Glucose POC Glucose 406 H* 341 H 278 H Calculated Osmolality Calcium Preliminary micro results at discharge 10/14/17 23:50 Blood Culture - Preliminary Peripheral Venipuncture No growth. 10/14/17 23:50 Blood Culture - Preliminary Peripheral Venipuncture No growth. - Impressions ITS Impressions Chest X-Ray 10/14/17 23:21 IMPRESSION: 1. Endotracheal tube tip is approximately 4 cm above the pratik. 2. No pneumothorax. 3. Small right pleural effusion. Bibasilar opacities may reflect atelectasis or consolidation. Mild interstitial prominence or vascular congestion. 4. Nasogastric tube tip is not appreciated on this study, but the side port appears to be at the level of the mid gastric body. D/ : / 10/15/2017 06:59:50 Mich Moreira MD / anu Interpreting Provider: Mich Moreira MD X-Ray 10/14/17 23:21 IMPRESSION: 1. Endotracheal tube tip is approximately 4 cm above the pratik. 2. No pneumothorax. 3. Small right pleural effusion. Bibasilar opacities may reflect atelectasis or consolidation. Mild interstitial prominence or vascular congestion. 4. Nasogastric tube tip is not appreciated on this study, but the side port appears to be at the level of the mid gastric body. D/ /15/2017 06:59:50 Mich Moreira MD / anu Interpreting Provider: Mich Moreira MD Chest X-Ray 10/15/17 07:09 IMPRESSION: Stable cardiomegaly. Bilateral airspace opacities, may be related to mild pulmonary edema versus pneumonia, stable. Small bilateral pleural effusions. D/ / Tad Naranjo MD / Tad Naranjo MD Interpreting Provider: Tad Naranjo MD Chest X-Ray 10/16/17 06:00 IMPRESSION: Appropriate endotracheal tube positioning. No pneumothorax. No substantial change in bilateral effusions and basilar opacities. D/ / Mich Walden / Mich Walden Interpreting Provider: Mich Walden Date of admission: 10/14/17 22:50 Primary care physician: PCP [facility] Consults: 10/15/17 08:47 Consult to Pulmonology [CONS] Routine Consulting Provider: [facility] Reason for Consult: ICU management Time Notified: 08:47 Call Completed: Yes 10/15/17 11:13 Consult to Interpret Exam [CONS] Routine Consulting Provider: Rut Madera Consult to Interpret Exam: Interpret EEG 10/15/17 14:05 Consult to Nutrition [CONS] Routine Comment: Consulting Provider: NUTRITION Reason for Dietary Consult: Tube Feed Start & Manage Discharging clinician: Honorio Chapin Anticipated date of discharge: 10/19/17 - Patient Status Disposition: Home, Self-Care Condition: Fair Overall status at discharge: patient is progressing back to baseline - Discharge Instructions Instructions: Pneumonia (DC) [facility]: [facility] [Primary Care Provider] - - Diet and Activity Activity: increase activity as tolerated Diet: advance to your usual diet - Hospital Course Hospital course: Mr. Estrada is a 71 year old male with a PMH of COPD on LTOT, hypertension, DM , HLD, carotid stenosis s/p CEA, CVA without residual deficits, and PVD who was transferred to the hospital from [facility] on 10/14/16 for the management of acute respiratory failure s/p intubation. Patient was initially seen in the [facility] ER for acute respiratory distress with hypercapnia and hypoxia. He was admitted for treatment of pneumonia and COPD exacerbation. During his stay there, patient further deteriorated, desaturating to 80% on BiPAP support, requiring intubation. Patient was then transferred [facility] for further management. Patient had an elevated BP at 192/69 on arrival. All other vital signs within normal limits. He was admitted for acute respiratory failure with hypoxia and hypercapnia. He was transferred to the ICU, mechanically intubated and sedated. Patient had required high doses of sedation due to agitation prior to transfer. CXR demonstrated following: Small R-sided pleural effusion, bibasilar possibly reflecting atelectasis or consolidation. Mild interstitial prominence or vascular congestion. Patient was started on broad-spectrum antibiotics vancomycin and Zosyn. Both blood cultures and respiratory panel were negative. Broad-spectrum and about its were subsequently discontinued and patient was started on Levaquin. He was also started on Solu-Medrol and Proventil. His home 2 L of oxygen was resumed. During his stay in the hospital , patient was given clonidine, hydralazine, and Lopressor for blood pressure control. Blood pressure on date of discharge is 143/68. The patient was noted to have an elevated fingerstick glucose on arrival at greater than 500. He was placed on high-dose insulin sliding scale. Subsequent glucose levels were improved. His glucose on date of discharge is 185. Patient responded well to antibiotics and bronchodilators. Patient's white count was within normal limits during his stay in the hospital. Patient was seen and examined at bedside this morning. Reports improvement of his breathing. States that he has no recollection of his initial arrival to the hospital. Patient has a mild cough but denies having any fever, chills, chest pain, shortness of breath, or sputum production. Patient will be discharged on 2 more days of Levaquin and a prednisone taper. - Time Spent with Patient Total time spent providing and/or coordinating discharge services: Greater than 30 minutes (41 minutes) Physical Examination Vital Signs: Vital Signs, Last 4 Hours Temp Pulse Resp BP Pulse Ox 10/19/17 08:00 97.6 F 62 16 144/73 94 10/19/17 07:40 16 97 10/19/17 07:33 97.6 F - VTE Documentation of Mechanical Device: Intermittent pneumatic compression device <Maisha Reno M - Last Filed: 10/19/17 15:29> Date of Encounter: 10/19/17 Labs on day of discharge: Labs from last 24 hours 10/19/17 10/19/17 10/19/17 07:17 04:55 04:55 WBC 8.1 RBC 3.95 L Hgb 12.0 L Hct 34.8 L MCV 88.1 MCH 30.4 MCHC 34.5 RDW 14.2 Plt Count 194 MPV 10.8 Immature Gran % 3.6 Seg Neutrophils % 74.2 Lymphocytes % 12.0 Monocytes % 9.5 Eosinophils % 0.2 Basophils % 0.5 Neutrophils # 6.0 Lymphocytes # 1.0 Monocytes # 0.8 Eosinophils # 0.0 Basophils # 0.0 Nucleated RBCs/100 WBC 0.2 H Sodium 140 Potassium 4.0 Chloride 100 Carbon Dioxide 30 H BUN 46 H Creatinine 1.37 H Est GFR ( Amer) > 60 Est GFR (Non-Af Amer) 51 L BUN/Creatinine Ratio 34 H Glucose 79 POC Glucose 185 H Calculated Osmolality 301 H Calcium 9.8 10/19/17 10/18/17 10/18/17 04:43 23:28 19:37 WBC RBC Hgb Hct MCV MCH MCHC RDW Plt Count MPV Immature Gran % Seg Neutrophils % Lymphocytes % Monocytes % Eosinophils % Basophils % Neutrophils # Lymphocytes # Monocytes # Eosinophils # Basophils # Nucleated RBCs/100 WBC Sodium Potassium Chloride Carbon Dioxide BUN Creatinine Est GFR ( Amer) Est GFR (Non-Af Amer) BUN/Creatinine Ratio Glucose POC Glucose 71 246 H 425 H* Calculated Osmolality Calcium 10/18/17 19:36 WBC RBC Hgb Hct MCV MCH MCHC RDW Plt Count MPV Immature Gran % Seg Neutrophils % Lymphocytes % Monocytes % Eosinophils % Basophils % Neutrophils # Lymphocytes # Monocytes # Eosinophils # Basophils # Nucleated RBCs/100 WBC Sodium Potassium Chloride Carbon Dioxide BUN Creatinine Est GFR ( Amer) Est GFR (Non-Af Amer) BUN/Creatinine Ratio Glucose POC Glucose 406 H* Calculated Osmolality Calcium Preliminary micro results at discharge 10/14/17 23:50 Blood Culture - Preliminary Peripheral Venipuncture No growth. 10/14/17 23:50 Blood Culture - Preliminary Peripheral Venipuncture No growth. - Impressions ITS Impressions Chest X-Ray 10/14/17 23:21 IMPRESSION: 1. Endotracheal tube tip is approximately 4 cm above the pratik. 2. No pneumothorax. 3. Small right pleural effusion. Bibasilar opacities may reflect atelectasis or consolidation. Mild interstitial prominence or vascular congestion. 4. Nasogastric tube tip is not appreciated on this study, but the side port appears to be at the level of the mid gastric body. D/ / 10/15/2017 06:59:50 Mich Moreira MD / anu Interpreting Provider: Mich Moreira MD X-Ray 10/14/17 23:21 IMPRESSION: 1. Endotracheal tube tip is approximately 4 cm above the pratik. 2. No pneumothorax. 3. Small right pleural effusion. Bibasilar opacities may reflect atelectasis or consolidation. Mild interstitial prominence or vascular congestion. 4. Nasogastric tube tip is not appreciated on this study, but the side port appears to be at the level of the mid gastric body. D/ / 10/15/2017 06:59:50 Mich Moreira MD / anu Interpreting Provider: Mich Moreira MD Chest X-Ray 10/15/17 07:09 IMPRESSION: Stable cardiomegaly. Bilateral airspace opacities, may be related to mild pulmonary edema versus pneumonia, stable. Small bilateral pleural effusions. D/ / Tad Naranjo MD / Tad Naranjo MD Interpreting Provider: Tad Naranjo MD Chest X-Ray 10/16/17 06:00 IMPRESSION: Appropriate endotracheal tube positioning. No pneumothorax. No substantial change in bilateral effusions and basilar opacities. D/ / Mich Walden / Mich Walden Interpreting Provider: Mich Walden Date of admission: 10/14/17 22:50 Primary care physician: [facility] Consults: 10/15/17 08:47 Consult to Pulmonology [CONS] Routine Consulting Provider: [facility] Reason for Consult: ICU management Time Notified: 08:47 Call Completed: Yes 10/15/17 11:13 Consult to Interpret Exam [CONS] Routine Consulting Provider: Rut Madera Consult to Interpret Exam: Interpret EEG 10/15/17 14:05 Consult to Nutrition [CONS] Routine Comment: Consulting Provider: NUTRITION Reason for Dietary Consult: Tube Feed Start & Manage - Hospital Course Hospital course: Mr. Estrada is a 71 year old male - Time Spent with Patient Total time spent providing and/or coordinating discharge services: - Attending Attestation I examined this patient and my medical decision-making was reviewed with the Resident Physician. I agree with the documented findings, disposition and treatment plan as described except to the extent set forth below. Patient seen and examined. Labs, radiology, chart personally reviewed. 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 Patient remained stable and to be discharged home on taper steroid and antibiotic. Patient will need follow-up as outpatient. Patient will be discharged on bronchodilators. Cardiovascular: stable
== END 2017-10-19 12:02 | disposition home or self-care (01) | DRG 208 ==
LOC: ICNU 22:50
PROVIDERS: ADMIT Internal Medicine; ATTEND Internal Medicine